=== PATIENT | female | born 1940 | race Caucasian/White ===

== ENCOUNTER → 2016-12-13 | Outpatient (CLI) | payer MEDICARE, OTHER ==
[~2016-12-13] MED LIST: AREDS 2 PO; ASPIRIN EC81 M1; ASPIRIN EC81 M1 PO; FLAXSEED340 GM PO; IBUPROFEN200 M1 PO; VITAMIN D31000 UNI1 PO
== END | disposition home or self-care (01) ==
LOC: CSSDAY 09:41
DX: M81.0 Age-related osteoporosis without current pathological fracture (principal); Z79.899 Other long term (current) drug therapy
CPT/HCPCS: 36415; 82310; 96372; J0897